=== PATIENT | male | born 1985 | race Caucasian/White ===

== ENCOUNTER → 2016-11-08 | Outpatient (CLI) | payer BC ==
[2014-04-05 16:44] VITALS: BP 159/91
--- NOTE | 2016-11-08 15:59 | VAS ---
HISTORY: Leg pain and swelling Study: Venous Doppler study of the left leg Comparison: None TECHNIQUE: Multiple amaro scale and color flow Doppler images of the deep venous system were obtaine d of the left lower extremity. FINDINGS: The deep venous system of the left lower extremity was evaluated from the level of the common femora l vein through the popliteal vein. Normal color flow and augmentation can be observed. In addition , normal compression is seen throughout the deep venous system. IMPRESSION: 1. Negative for DVT. Reported By:
== END ==
LOC: RAD 14:39
PROVIDERS: ATTEND Internal Medicine
DX: R60.0 Localized edema (principal)
CPT/HCPCS: 93971

== ENCOUNTER → 2017-01-16 | Outpatient (CLI) | payer BC ==
[2014-04-05 16:44] VITALS: BP 159/91
--- NOTE | 2017-01-16 10:40 | RAD ---
HISTORY: Preop gastric sleeve Study: Chest two-view Comparison: None Findings: The trachea is midline. The cardiac silhouette is unremarkable. The lungs are clear without focal infiltrate or effusion. The bony thorax is unremarkable. IMPRESSION: 1. No acute cardiopulmonary disease. Reported By:
--- NOTE | 2017-01-17 08:41 | RAD ---
HISTORY: Preoperative evaluation for gastric banding Study: Barium swallow Comparison: None Technique: Multiple fluoroscopic images of the esophagus were obtained during the administration of oral barium. Findings: Exam is limited secondary to patient body habitus and weight limit of fluoroscopy table. However, no gross esophageal dysmotility is identified. No hernia or reflux was elicited. There is a normal jamie entation of the GE junction. A barium tablet passes normally. The total fluoroscopy time utilized was 4.1 seconds of fluoroscopy time was utilized. 48 fluoroscopi c spot images were obtained. IMPRESSION: Unremarkable barium swallow. Reported By:
== END ==
LOC: RAD 08:51
PROVIDERS: ATTEND Student in an Organized Health Care Education/Training Program
DX: Z01.818 Encounter for other preprocedural examination (principal); Z01.810 Encounter for preprocedural cardiovascular examination; Z01.811 Encounter for preprocedural respiratory examination; E66.01 Morbid (severe) obesity due to excess calories; Z68.45 Body mass index [BMI] 70 or greater, adult; I89.0 Lymphedema, not elsewhere classified
CPT/HCPCS: 70370; 71020; 93005; 93010

== ENCOUNTER 2017-01-26 15:05 | Emergency (ER) | payer BC ==
[2017-01-26 15:11] VITALS: BP 162/92; BMI 68.5
--- NOTE | 2017-01-26 15:36 | DR.GENAD ---
HPI - PCP Primary Care Physician: benjamin - HPI Comment HPI Comment: NOT BETTER. PAIN INCREASING. NO FEVER, NO DRAINAGE. - Complaint/Symptoms Chief Complaint Doctors Comments: ABSCESS PERIRECTAL AREA TIMES FEW DAYS. ON CLINDAMYCIN. Chief Complaint:: pt has a rising between his butt checks. it started night and it has gotten bigger since then - Nurses notes reviewed Nurses Notes Review: Yes - Source History Provided: Patient - Mode of Arrival Mode of Arrival: Ambulatory - Timing Onset of Chief Complaint: 01/24/17 Came on: Suddenly - Duration Duration: Constant Duration: Days PMH - PMH Past Medical History: No Past Surgical History: Yes Surgical History: Tonsillectomy - Family History History of Family Medical Conditions: No - Social History Does patient currently use any type of tobacco product: No Have you used tobacco products in the last 12 months: No Type of Tobacco Use: None Does any household member use tobacco: No Alcohol Use: None Do you use any recreational Drugs:: No Lives With: Family Lives Where: Home - infectious screening In the last 2 months have you had wt loss of >10#?: NO Have you had fever, night sweats or hemotysis?: No Have you traveled outside the country in the last 6 months?: No Isolation: Standard ROS - Review of Systems Constitutional: No Symptoms Reported Eyes: No Symptoms Reported ENTM: No Symptoms Reported Respiratoy: No Symptoms Reported Cardiovascular: No Symptoms Reported Gastrointestinal/Abdominal: No Symptoms Reported Genitourinary: No Symptoms Reported Neurological: No Symptoms Reported Musculoskeletal: Muscle Pain Integumentary: Other (HEMORRHOID, ABCESS, ERYTHEMA RECTAL AREA.) PE - Vital Signs Vitals: Temperature 98 F Pulse Rate 80 Respiratory Rate 18 Blood Pressure 162/92 O2 Sat by Pulse Oximetry 99 - General Limitations: No Limitations General Appearance: Alert - Head Head Exam: Normal Inspection - Eyes Eye exam: Normal Appearance - ENT ENT Exam: Normal External Ear Exam External Ear Exam: Normal External Inspection TM/Canal Exam: Bilateral Normal Nose Exam: Normal Nose Exam Mouth Exam: Normal Inspection Throat Exam: Normal Inspection - Neck Neck Exam: Trachea Midline - Chest Chest Inspection: Symmetric Chest Wall Rise - Respiratory Respiratory Exam: Normal Lung Sounds Bilat Respiratory Exam: Bilateral Clear to Auscultation - Cardiovascular Cardiovascular Exam: Regular Rate, Normal Rhythm, Normal Heart Sounds - Abdominal Exam Abdominal Exam: Normal Bowel Sounds, Soft, Other (INFLAME HEMORRHIOD THAT IS TENDER.). negative: Tenderness - Extremities Extremities Exam: Normal Inspection - Back Back Exam: Normal Inspection - Neurologic Neurological Exam: Alert, Oriented X3 - Psychiatric Psychiatric Exam: Normal Affect, Normal Mood - Skin Skin Exam: Erythema MDM - Additional Information Additional Information Obtained From: Family - Differential Diagnosis Differential Diagnosis: HEMORRHOD, ABSCESS, PROCTITIS Course - Treatment Treatment: SEE ORDERS. - Education/Counseling Education/Counseling: Patient, Family, Education Educated On: Treatment, Diagnosis, Needs for Follow Up - Diagnosis Discharge Problem: Proctitis, Abscess, Acute hemorrhoid - Discharge Plan Disposition: HOME, SELF-CARE Condition: Stable Prescriptions: Acetaminophen with Codeine [Tylenol/Codeine #3 300-30 mg] 1 tab PO Q4-6H PRN # 15 tab PRN Reason: Pain Hydrocortisone Supp 25 mg [Anucort-Hc Supp] 25 mg RECTAL BID PRN #24 supp PRN Reason: Hemmorhoid Itching/Discomfort Sulfamethoxazole-Trimethoprim [BACTRIM DS TAB 800/160 MG *] 1 tab PO BID #20 tab - Follow ups/Referrals Follow ups/Referrals: Bhavesh Bowers [Primary Care Provider] - 01/28/17 - Instructions Instructions: Abscess, Pect-ze-Pwes, Hemorrhoids, Qocr-yd-Iibp, Proctitis Additional Instructions: RETURN TO ED IF WORSE.
== END 2017-01-26 16:42 | disposition home or self-care (01) ==
LOC: ER 15:05
DX: K62.89 Other specified diseases of anus and rectum (principal); K61.1 Rectal abscess; K64.8 Other hemorrhoids
CPT/HCPCS: 99281; 99282; 99283

== ENCOUNTER 2017-04-27 09:45 | Emergency (ER) | payer BC ==
[2017-04-27 09:58] VITALS: BP 152/97; BMI 63.4
--- NOTE | 2017-04-27 10:34 | DR.GENAD ---
HPI - PCP Primary Care Physician: DR. ASHTON - Complaint/Symptoms Chief Complaint Doctors Comments: Histor as stated. Chief Complaint:: PT THINKS HE MAY HAVE A BLOOD CLOT TO HIS LLE... EDEMA AND BRUISING NOTED .. PT HAS LYMADEMA NOTED ,, PT WAS CHECKED 2 MONTHS AGO FOR A CLOT ... Self Treatment fo Chief Complaint: PT IS HAVING TROUBLE WALKING ON IT .. - Source History Provided: Patient - Mode of Arrival Mode of Arrival: Ambulatory - Timing Onset of Chief Complaint: 04/27/17 PMH - PMH Past Medical History: No Past Surgical History: Yes Surgical History: Tonsillectomy Past Surgical History Comment: BARIATRIC SLEVE... - Family History History of Family Medical Conditions: No - Social History Does patient currently use any type of tobacco product: No Have you used tobacco products in the last 12 months: No Type of Tobacco Use: None Does any household member use tobacco: No Alcohol Use: None Do you use any recreational Drugs:: No Lives Where: Home - infectious screening In the last 2 months have you had wt loss of >10#?: NO Have you had fever, night sweats or hemotysis?: No Have you traveled outside the country in the last 6 months?: No Isolation: Standard ROS - Review of Systems Constitutional: negative: Diaphoresis Eyes: No Symptoms Reported ENTM: No Symptoms Reported Respiratoy: No Symptoms Reported Cardiovascular: No Symptoms Reported Gastrointestinal/Abdominal: No Symptoms Reported Genitourinary: No Symptoms Reported Neurological: No Symptoms Reported Musculoskeletal: Left (lower extremity with tenderness) Integumentary: No Symptoms Reported, Other (dusky in color) Hematologic/Lymphatic: No Symptoms Reported Endocrine: No Symptoms Reported Psychiatric: No Symptoms Reported All Other Systems: Reviewed and Negative PE - Vital Signs Vitals: Temperature 98.1 F Pulse Rate 88 Respiratory Rate 22 Blood Pressure 152/97 O2 Sat by Pulse Oximetry 99 - General Limitations: Physical Limitation (pain with ambulation of left lower extremity) General Appearance: Alert - Head Head Exam: Normal Inspection, Atraumatic - Eyes Eye exam: Normal Appearance, PERRL, EOMI - ENT ENT Exam: Normal Exam External Ear Exam: Normal External Inspection, Auricular Hematoma TM/Canal Exam: Bilateral Normal Nose Exam: Normal Nose Exam Mouth Exam: Normal Inspection Throat Exam: Normal Inspection - Neck Neck Exam: Normal Inspection - Chest Chest Inspection: Normal Inspection - Respiratory Respiratory Exam: Normal Lung Sounds Bilat Respiratory Exam: Bilateral Clear to Auscultation - Cardiovascular Cardiovascular Exam: Regular Rate, Normal Rhythm - Abdominal Exam Abdominal Exam: Normal Inspection, Normal Bowel Sounds Abdominal Tenderness: negative: RUQ, RLQ, LUQ, LLQ, Epigastrium, Suprapubic, Diffuse, Mild, Moderate, Severe, Other - Extremities Extremities Exam: Edema (gastrocnemius of left lower extremity edemaouts, dusky in color tender) - Back Back Exam: Normal Inspection - Neurologic Neurological Exam: Alert, Oriented X3, CN II-XII Intact - Psychiatric Psychiatric Exam: Normal Affect - Skin Skin Exam: Warm, Dry, Intact Course - Consultation Called: 11:30 ROR - Labs Reviewed Laboratory Results Reviewed?: Yes (D Dimer 236) Result Diagrams: 04/27/17 10:55 Laboratory: WBC 12.4 X10^3/uL (3.6-10.0) H 04/27/17 10:55 RBC 5.34 X10^6/uL (4.7-6.0) 04/27/17 10:55 Hgb 14.9 g/dL (13.5-18.0) 04/27/17 10:55 Hct 44.5 % (42.0-54.0) 04/27/17 10:55 MCV 83.3 fL (80.0-100.0) 04/27/17 10:55 MCH 27.9 pg (27.0-34.0) 04/27/17 10:55 MCHC 33.5 g/dL (33.0-35.0) 04/27/17 10:55 RDW 16.2 % (11.6-16.5) 04/27/17 10:55 Plt Count 176 X10^3/uL (150.0-450.0) 04/27/17 10:55 MPV 9.2 fL (7.4-11.0) 04/27/17 10:55 Neut % 86.2 % (42.0-75.0) H 04/27/17 10:55 Lymph % 6.9 % (21.0-51.0) L 04/27/17 10:55 [place] % 5.2 % (0.0-13.0) 04/27/17 10:55 Eos % 1.4 % (0.9-2.9) 04/27/17 10:55 Baso % 0.3 % (0.2-1.0) 04/27/17 10:55 Neut # 10.7 x10^3/uL (2.2-4.8) H 04/27/17 10:55 Lymph # 0.9 X10^3/uL (1.3-2.9) L 04/27/17 10:55 [place] # 0.6 x10^3/uL (0.3-0.8) 04/27/17 10:55 Eos # 0.2 x10^3/uL (0.0-0.2) 04/27/17 10:55 Baso # 0.0 X10^3/uL (0.0-0.1) 04/27/17 10:55 Absolute Nucleated RBC 0.0 /100WBC 04/27/17 10:55 D-Dimer 236 ng/mL (0-400) 04/27/17 10:55 C-Reactive Protein 10.20 mg/L (0-3.0) H 04/27/17 10:55 - XRAY XRAY Interpreted by: Radiologist (Venous Ultrasound dopppler LLE: c/o pain: The deep venous ststem of the left lower extremity was evaluated from the level of the common femoral vein through the popliteal vein. Normal color flow and augumentatin can be observe. In addition, normal compression is seen throughout the deep venous ststem. Impressin: Negative for DVT) - Diagnosis Discharge Problem: Leg pain, left, Venous doppler us negative - Discharge Plan Condition: Stable - Follow ups/Referrals Follow ups/Referrals: NFD,None [Primary Care Provider] - 3 days - Instructions
[2017-04-27 11:14] LABS: BASOPHILS % (AUTO) 0.3 % (0.2-1.0); EOSINOPHILS # (AUTO) 0.2 x10^3/uL (0.0-0.2); EOSINOPHILS % (AUTO) 1.4 % (0.9-2.9); HEMATOCRIT 44.5 % (42.0-54.0); HEMOGLOBIN 14.9 g/dL (13.5-18.0); LYMPHOCYTES # (AUTO) 0.9 X10^3/uL (1.3-2.9); LYMPHOCYTES % (AUTO) 6.9 % (21.0-51.0); MEAN CORPUSCULAR HEMOGLOBIN 27.9 pg (27.0-34.0); MEAN CORPUSCULAR HGB CONC 33.5 g/dL (33.0-35.0); MEAN CORPUSCULAR VOLUME 83.3 fL (80.0-100.0); MEAN PLATELET VOLUME 9.2 fL (7.4-11.0); MONOCYTES # (AUTO) 0.6 x10^3/uL (0.3-0.8); MONOCYTES % (AUTO) 5.2 % (0.0-13.0); NEUTROPHILS # (AUTO) 10.7 x10^3/uL (2.2-4.8); NEUTROPHILS % (AUTO) 86.2 % (42.0-75.0); PLATELET COUNT 176 X10^3/uL (150.0-450.0); RED BLOOD COUNT 5.34 X10^6/uL (4.7-6.0); RED CELL DISTRIBUTION WIDTH 16.2 % (11.6-16.5); WHITE BLOOD COUNT 12.4 X10^3/uL (3.6-10.0)
[2017-04-27 11:21] LABS: C-REACTIVE PROTEIN 10.2 mg/L (0-3.0)
--- NOTE | 2017-04-27 12:30 | VAS ---
VENOUS ULTRASOUND DOPPLER EXAMINATION OF THE LEFT LOWER EXTREMITY HISTORY: Leg pain Comparison: None TECHNIQUE: Multiple amaro scale and color flow Doppler images of the deep venous system were obtained of the left lower extremity. FINDINGS: The deep venous system of the left lower extremity was evaluated from the level of the common femoral vein through the popliteal vein. Normal color flow and augmentation can be observed. In addition, normal compression is seen throughout the deep venous system. IMPRESSION: 1. Negative for DVT. Reported By:
== END 2017-04-27 13:00 | disposition home or self-care (01) ==
LOC: ER 10:01
DX: M79.605 Pain in left leg (principal)
CPT/HCPCS: 36415; 85025; 85378; 86140; 93971; 99283

== ENCOUNTER → 2017-10-14 | Outpatient (CLI) | payer BC ==
--- NOTE | 2017-10-14 12:46 | CT ---
HISTORY: Headache Study: CT head without contrast Comparison: None Technique: Axial noncontrast images with coronal and sagittal reformats. Dose reduction procedures we re used with mA/kv adjusted for body size. Findings: The ventricles are normal in size shape and position. There are no areas of abnormal attenuation to s uggest recent or remote CVA, hemorrhage, mass lesion, or extra-axial fluid collection. The visualized sinuses are clear. The calvarium is intact. IMPRESSION: No significant intracranial abnormality identified Reported By:
== END ==
LOC: RAD 12:08
PROVIDERS: ATTEND Internal Medicine
DX: R51 Headache (principal)
CPT/HCPCS: 70450

== ENCOUNTER 2017-10-15 09:36 | Observation (INO) | payer BC ==
[2017-10-15] MEDS ORDERED: MILK OF MAGNESIA PO PRN (10:50)
[2017-10-15] MEDS ORDERED: COLACE CAP 100 MG PO SCH (11:00)
[2017-10-15] MEDS: PHENERGAN INJ 25 MG IV PRN ×2 (11:05→16:03)
[2017-10-15] MEDS: DEMEROL INJ IVP PRN ×2 (11:05→16:03)
[2017-10-15 11:06] LABS: BILIRUBIN,URINE NEGATIVE (NEGATIVE); BLOOD/HEMOGLOBIN,URINE 1+ (NEGATIVE); GLUCOSE, URINE NEGATIVE (NEGATIVE); KETONES,URINE 1+ (NEGATIVE); LEUKOCYTE ESTERASE ,URINE 1+ (NEGATIVE); NITRITES,URINE NEGATIVE (NEGATIVE); PROTEIN,URINE 2+ (NEGATIVE); UROBILINOGEN,URINE 2+ (NORMAL)
[2017-10-15 11:15] LABS: ALANINE AMINOTRANSFERASE 18 Units/L (12-78); ALBUMIN 3.8 g/dL (3.4-5.0); ALKALINE PHOSPHATASE 60 Units/L (46-116); AMYLASE 40 Units/L (25-115); ASPARTATE AMINO TRANSFERASE 12 Units/L (15-37); BLOOD UREA NITROGEN 11 mg/dL (7-18); CALCIUM 8.2 mg/dL (8.5-10.1); CARBON DIOXIDE 29.8 mmol/L (21-32); CHLORIDE 104 mmol/L (98-107); CREATININE 1.01 mg/dL (0.70-1.30); LIPASE 100 Units/L (73-393); SODIUM 142 mmol/L (136-145); TOTAL PROTEIN 8.1 g/dL (6.4-8.2); eGFR BLACK RACES > 60 (>60); eGFR NON BLACK RACES > 60 (>60)
[2017-10-15] MEDS: PEPCID 20 MG IV PREMIX* 20 MG/50 ML BAG IV SCH ×2 (11:18→21:16)
[2017-10-15] MEDS: NS 1000 ML 1,000 ML IV SCH ×3 (11:18→22:21)
[2017-10-15] MEDS: PROTONIX INJ 40 MG VIAL IVP SCH ×2 (11:18→21:16)
[2017-10-15 11:23] LABS: APPEARANCE,URINE SLIGHTLY HAZY (CLEAR); BACTERIA,URINE TRACE /HPF (NEGATIVE); COLOR,URINE DARK YELLOW (YELLOW); MUCUS,URINE FEW /HPF (NEGATIVE); SQUAMOUS EPITHELIAL CELL,UR FEW /HPF (NEGATIVE)
[2017-10-15 11:56] LABS: BASOPHILS % (AUTO) 0.5 % (0.2-1.0); EOSINOPHILS % (AUTO) 0.3 % (0.9-2.9); HEMATOCRIT 42.9 % (42.0-54.0); HEMOGLOBIN 14.6 g/dL (13.5-18.0); LYMPHOCYTES # (AUTO) 1.1 X10^3/uL (1.3-2.9); LYMPHOCYTES % (AUTO) 13.7 % (21.0-51.0); MEAN CORPUSCULAR HEMOGLOBIN 29.6 pg (27.0-34.0); MEAN CORPUSCULAR VOLUME 87.1 fL (80.0-100.0); MEAN PLATELET VOLUME 8.9 fL (7.4-11.0); MONOCYTES # (AUTO) 0.4 x10^3/uL (0.3-0.8); NEUTROPHILS # (AUTO) 6.6 x10^3/uL (2.2-4.8); NEUTROPHILS % (AUTO) 80.5 % (42.0-75.0); PLATELET COUNT 235 X10^3/uL (150.0-450.0); RED BLOOD COUNT 4.92 X10^6/uL (4.7-6.0); RED CELL DISTRIBUTION WIDTH 13.7 % (11.6-16.5); WHITE BLOOD COUNT 8.2 X10^3/uL (3.6-10.0)
[2017-10-15] MEDS ORDERED: LEVSIN/MAALOX/LIDOC VISC PO SCH (13:00)
[2017-10-15] MEDS: NORCO 10/325 TAB PO PRN ×2 (14:23→21:15)
[2017-10-15] MEDS ORDERED: NS 100 ML IV + SPIKE MINIBAG* 100 ML IV ONE (16:40)
[2017-10-15] MEDS: TORADOL 30 MG VIAL IVP SCH ×2 (17:01→22:21)
[2017-10-15] MEDS: ZOSYN VIAL 3.375 GM IV SCH ×2 (17:02→22:21)
--- NOTE | 2017-10-15 17:36 | CT ---
HISTORY: Headache, neck pain Study: CT cervical spine without contrast Comparison: None Technique: Axial noncontrast images with coronal and sagittal reformats. Dose reduction procedures we re used with mA/kv adjusted for body size. Findings: The prevertebral soft tissues are normal. The alignment is normal. The vertebral bodies are of averag e height. The disc spaces are preserved. The pedicles, spinous processes, and posterior elements are intact. The neural foramina are patent. The joints are normal. IMPRESSION: No significant abnormality identified Reported By:
[2017-10-15] MEDS: COLACE CAP 100 MG PO SCH (21:15)
[2017-10-16] MEDS: NS 1000 ML 1,000 ML IV SCH ×5 (03:03→22:35)
[2017-10-16] MEDS ORDERED: NS 100 ML IV + SPIKE MINIBAG* 100 ML IV ONE ×4 (04:32→20:18)
[2017-10-16] MEDS: TORADOL 30 MG VIAL IVP SCH ×4 (04:36→22:35)
[2017-10-16] MEDS: ZOSYN VIAL 3.375 GM IV SCH ×4 (04:37→22:35)
[2017-10-16 06:14] LABS: BASOPHILS # (AUTO) 0.1 X10^3/uL (0.0-0.1); BASOPHILS % (AUTO) 0.9 % (0.2-1.0); EOSINOPHILS # (AUTO) 0.1 x10^3/uL (0.0-0.2); EOSINOPHILS % (AUTO) 1.7 % (0.9-2.9); HEMATOCRIT 39.8 % (42.0-54.0); HEMOGLOBIN 13.7 g/dL (13.5-18.0); LYMPHOCYTES % (AUTO) 30.3 % (21.0-51.0); MEAN CORPUSCULAR HEMOGLOBIN 29.9 pg (27.0-34.0); MEAN CORPUSCULAR HGB CONC 34.5 g/dL (33.0-35.0); MEAN CORPUSCULAR VOLUME 86.5 fL (80.0-100.0); MEAN PLATELET VOLUME 9.1 fL (7.4-11.0); MONOCYTES # (AUTO) 0.6 x10^3/uL (0.3-0.8); MONOCYTES % (AUTO) 8.8 % (0.0-13.0); NEUTROPHILS # (AUTO) 3.9 x10^3/uL (2.2-4.8); NEUTROPHILS % (AUTO) 58.3 % (42.0-75.0); PLATELET COUNT 202 X10^3/uL (150.0-450.0); RED CELL DISTRIBUTION WIDTH 13.9 % (11.6-16.5); WHITE BLOOD COUNT 6.7 X10^3/uL (3.6-10.0)
[2017-10-16 07:02] LABS: ALBUMIN 3.1 g/dL (3.4-5.0); ASPARTATE AMINO TRANSFERASE 11 Units/L (15-37); BLOOD UREA NITROGEN 13 mg/dL (7-18); CALCIUM 8.1 mg/dL (8.5-10.1); CHLORIDE 106 mmol/L (98-107); COR CA(FOR HYPOALB) 8.8 mg/dL (8.5-10.1); CREATININE 0.87 mg/dL (0.70-1.30); SODIUM 143 mmol/L (136-145); eGFR BLACK RACES > 60 (>60); eGFR NON BLACK RACES > 60 (>60)
[2017-10-16 07:27] LABS: ALANINE AMINOTRANSFERASE 16 Units/L (12-78); ALKALINE PHOSPHATASE 48 Units/L (46-116)
[2017-10-16 07:45] VITALS: BMI 52.7
[2017-10-16] MEDS: PROTONIX INJ 40 MG VIAL IVP SCH ×2 (09:17→20:47)
[2017-10-16] MEDS: PEPCID 20 MG IV PREMIX* 20 MG/50 ML BAG IV SCH ×2 (09:17→20:48)
[2017-10-16] MEDS ORDERED: ZANAFLEX PO ONE (10:15)
[2017-10-16] MEDS ORDERED: PATIENT'S HOME MEDICATION (Ondansetron [Zofran Odt 8 Mg] 1 TAB) PO PRN (10:18)
[2017-10-16] MEDS ORDERED: ZOFRAN TAB 4 MG PO PRN (10:20)
--- NOTE | 2017-10-16 18:14 | DR.UPDATE ---
H&P Update History and Physical Update: WAS SEEN IN THE OFFICE ON 10/14/17. PATIENT REFUSED ADMISSION YESTERDAY , BUT RETURNED TODAY WITH THE SAME SYMPTOMS. WE PLAN TO ADMIT PATIENT FOR FURTHER EVALUATION AND WORK-UP. AN H&P WAS COMPLETED PRIOR TO ADMISSION. PATIENT HAS BEEN SEEN AND EXAMINED WITH NO CHANGES NOTED TO H&P. Changes noted: NO Yes with the following:
[2017-10-16] MEDS: NORCO 10/325 TAB PO PRN (19:22)
[2017-10-16] MEDS: COLACE CAP 100 MG PO SCH (20:49)
[2017-10-16] MEDS ORDERED: ZANAFLEX PO SCH (21:00)
[2017-10-17] MEDS ORDERED: NS 100 ML IV + SPIKE MINIBAG* 100 ML IV ONE (04:26)
[2017-10-17] MEDS: TORADOL 30 MG VIAL IVP SCH ×2 (04:42→10:35)
[2017-10-17] MEDS: ZOSYN VIAL 3.375 GM IV SCH ×2 (04:42→10:35)
[2017-10-17] MEDS: NS 1000 ML 1,000 ML IV SCH ×2 (04:42→10:35)
[2017-10-17 05:46] LABS: ALANINE AMINOTRANSFERASE 16 Units/L (12-78); ALBUMIN 3.3 g/dL (3.4-5.0); ALKALINE PHOSPHATASE 54 Units/L (46-116); ASPARTATE AMINO TRANSFERASE 8 Units/L (15-37); BLOOD UREA NITROGEN 12 mg/dL (7-18); CALCIUM 7.8 mg/dL (8.5-10.1); CARBON DIOXIDE 28.8 mmol/L (21-32); CHLORIDE 105 mmol/L (98-107); COR CA(FOR HYPOALB) 8.4 mg/dL (8.5-10.1); CREATININE 0.95 mg/dL (0.70-1.30); SODIUM 142 mmol/L (136-145); TOTAL PROTEIN 7.3 g/dL (6.4-8.2); eGFR BLACK RACES > 60 (>60); eGFR NON BLACK RACES > 60 (>60)
[2017-10-17 05:54] LABS: BASOPHILS # (AUTO) 0.1 X10^3/uL (0.0-0.1); BASOPHILS % (AUTO) 1.1 % (0.2-1.0); EOSINOPHILS # (AUTO) 0.3 x10^3/uL (0.0-0.2); EOSINOPHILS % (AUTO) 3.9 % (0.9-2.9); HEMATOCRIT 41.2 % (42.0-54.0); HEMOGLOBIN 14.3 g/dL (13.5-18.0); LYMPHOCYTES % (AUTO) 26.3 % (21.0-51.0); MEAN CORPUSCULAR HEMOGLOBIN 29.9 pg (27.0-34.0); MEAN CORPUSCULAR HGB CONC 34.7 g/dL (33.0-35.0); MEAN CORPUSCULAR VOLUME 86.3 fL (80.0-100.0); MEAN PLATELET VOLUME 8.8 fL (7.4-11.0); MONOCYTES # (AUTO) 0.6 x10^3/uL (0.3-0.8); NEUTROPHILS # (AUTO) 4.5 x10^3/uL (2.2-4.8); NEUTROPHILS % (AUTO) 60.7 % (42.0-75.0); PLATELET COUNT 215 X10^3/uL (150.0-450.0); RED BLOOD COUNT 4.78 X10^6/uL (4.7-6.0); RED CELL DISTRIBUTION WIDTH 13.6 % (11.6-16.5); WHITE BLOOD COUNT 7.5 X10^3/uL (3.6-10.0)
[2017-10-17] MEDS ORDERED: K-LYTE EFFERVESCENT PO PRN (06:59)
[2017-10-17] MEDS ORDERED: POTASSIUM CHL 60 MEQ/NS 0.45% 500 ML IV PRN (06:59)
[2017-10-17] MEDS ORDERED: K-RIDER 10 MEQ/NS 100 ML 10 MEQ/100 ML BAG IV PRN (06:59)
[2017-10-17] MEDS ORDERED: POTASSIUM CHL 40 MEQ/NS 0.45% 500 ML IV PRN (06:59)
[2017-10-17] MEDS ORDERED: POTASSIUM CHLORIDE LIQ 20 MEQ UDC PO PRN (06:59)
[2017-10-17] MEDS: NORCO 10/325 TAB PO PRN (07:50)
[2017-10-17] MEDS: PROTONIX INJ 40 MG VIAL IVP SCH (08:43)
[2017-10-17] MEDS: PEPCID 20 MG IV PREMIX* 20 MG/50 ML BAG IV SCH (08:43)
--- NOTE | 2017-10-17 10:20 | PCM.PROG ---
Progress Note - Progress Note for Day of Date: 10/16/17 - Subjective Subjective: IS BEING TREATED FOR SEVERE HEADACHE, NECK PAIN, AND NAUSEA /VOMITING. TODAY, HE IS ALERT AND ORIENTED, LYING IN BED ON MORNING ROUNDS. HE CONTINUES WITH MILD HEADACHE AND NECK PAIN. NORMAL RANGE OF MOTION IS NOTED TO NECK WITH NO STIFFNESS OR RIGIDITIY NOTED. HIS VITALS THIS MORNING ARE 98.3-56- 20-94%-128/74. HE REMAINS HEMODYNAMICALLY STABLE TODAY WITH THE EXCEPTION OF HIS POTASSIUM BEING SLIGHTLY DECREASED AT 3.4. TODAY, WE WILL START TIZANIDINE 4MG AT HS. WE WILL ALSO REPLACE HIS POTASSIUM WITH THE POTASSIUM PROTOCOL. OTHERWISE, WE WILL CONTINUE WITH CURRENT PLAN OF CARE AND CONTINUE TO MONITOR PATIENT. - Past Medical Family Social History Past Med/Fam/Surg Hx: No changes since H&P Allergies: Allergies No Known Drug Allergies Allergy (Verified 04/27/17 09:52) - Review of Systems ROS: No change since H&P - Vital Signs and I&O's Vital Signs: Temperature 98.2 F Pulse Rate [Right Brachial] 57 Pulse Rate [Left Radial] 55 Respiratory Rate 20 Blood Pressure [Right Arm] 134/80 Blood Pressure [Left Arm] 118/58 Blood Pressure 152/97 O2 Sat by Pulse Oximetry 96 Intake and Output: Intake & Output 10/14/17 10/15/17 10/16/17 10/17/17 11:59 11:59 11:59 11:59 Intake Total 1999 2260 Balance 1999 2260 - Physical Exam Oriented: Normal Eyes: Normal Ear: Normal Nose: Normal Throat: Normal Respiratory: Normal Cardiovascular: Normal : Normal Auscultation: Bowel Sounds: Normal Palpation: Normal Tenderness: Normal Skin: Normal Psychiatric: Normal Mood Description: Calm Affect: Normal Speech Pattern: Clear, Appropriate - Laboratory and Diagnostics Result Diagrams: 10/17/17 04:50 10/17/17 04:50 Labs: Laboratory WBC 7.5 X10^3/uL (3.6-10.0) 10/17/17 04:50 RBC 4.78 X10^6/uL (4.7-6.0) 10/17/17 04:50 Hgb 14.3 g/dL (13.5-18.0) 10/17/17 04:50 Hct 41.2 % (42.0-54.0) L 10/17/17 04:50 MCV 86.3 fL (80.0-100.0) 10/17/17 04:50 MCH 29.9 pg (27.0-34.0) 10/17/17 04:50 MCHC 34.7 g/dL (33.0-35.0) 10/17/17 04:50 RDW 13.6 % (11.6-16.5) 10/17/17 04:50 Plt Count 215 X10^3/uL (150.0-450.0) 10/17/17 04:50 MPV 8.8 fL (7.4-11.0) 10/17/17 04:50 Neut % (Auto) 60.7 % (42.0-75.0) 10/17/17 04:50 Lymph % (Auto) 26.3 % (21.0-51.0) 10/17/17 04:50 [place] % (Auto) 8.0 % (0.0-13.0) 10/17/17 04:50 Eos % (Auto) 3.9 % (0.9-2.9) H 10/17/17 04:50 Baso % (Auto) 1.1 % (0.2-1.0) H 10/17/17 04:50 Neut # (Auto) 4.5 x10^3/uL (2.2-4.8) 10/17/17 04:50 Lymph # (Auto) 2.0 X10^3/uL (1.3-2.9) 10/17/17 04:50 [place] # (Auto) 0.6 x10^3/uL (0.3-0.8) 10/17/17 04:50 Eos # (Auto) 0.3 x10^3/uL (0.0-0.2) H 10/17/17 04:50 Baso # (Auto) 0.1 X10^3/uL (0.0-0.1) 10/17/17 04:50 Absolute Nucleated RBC 0.1 /100WBC 10/17/17 04:50 Sodium 142 mmol/L (136-145) 10/17/17 04:50 Corrected Sodium TNP 10/17/17 04:50 Potassium 3.3 mmol/L (3.5-5.1) L 10/17/17 04:50 Chloride 105 mmol/L (98-107) 10/17/17 04:50 Carbon Dioxide 28.8 mmol/L (21-32) 10/17/17 04:50 BUN 12 mg/dL (7-18) 10/17/17 04:50 Creatinine 0.95 mg/dL (0.70-1.30) 10/17/17 04:50 Est GFR (MDRD) Af Amer > 60 (>60) 10/17/17 04:50 Est GFR (MDRD) Non-Af > 60 (>60) 10/17/17 04:50 Glucose 87 mg/dL (65-99) 10/17/17 04:50 Calcium 7.8 mg/dL (8.5-10.1) L 10/17/17 04:50 Corrected Calcium 8.4 mg/dL (8.5-10.1) L 10/17/17 04:50 Magnesium 1.8 mg/dL (1.7-2.9) 10/17/17 04:50 Total Bilirubin 0.80 mg/dL (0.2-1.0) 10/17/17 04:50 AST 8 Units/L (15-37) L 10/17/17 04:50 ALT 16 Units/L (12-78) 10/17/17 04:50 Alkaline Phosphatase 54 Units/L (46-116) 10/17/17 04:50 Total Protein 7.3 g/dL (6.4-8.2) 10/17/17 04:50 Albumin 3.3 g/dL (3.4-5.0) L 10/17/17 04:50 Globulin 4.0 g/dL (2.5-4.5) 10/17/17 04:50 Albumin/Globulin Ratio 0.8 Ratio (1.1-2.1) L 10/17/17 04:50 Amylase 40 Units/L (25-115) 10/15/17 10:45 Lipase 100 Units/L (73-393) 10/15/17 10:45 Specimen Type Clean catch urine 10/15/17 10:39 Urine Color Dark yellow (YELLOW) 10/15/17 10:39 Urine Appearance Slightly hazy (CLEAR) 10/15/17 10:39 Urine pH 6.0 (5.0 - 8.0) 10/15/17 10:39 Ur Specific Ball 1.015 (1.000-1.030) 10/15/17 10:39 Urine Protein 2+ (NEGATIVE) 10/15/17 10:39 Urine Glucose (UA) Negative (NEGATIVE) 10/15/17 10:39 Urine Ketones 1+ (NEGATIVE) 10/15/17 10:39 Urine Occult Blood 1+ (NEGATIVE) 10/15/17 10:39 Urine Nitrite Negative (NEGATIVE) 10/15/17 10:39 Urine Bilirubin Negative (NEGATIVE) 10/15/17 10:39 Urine Urobilinogen 2+ (NORMAL) 10/15/17 10:39 Ur Leukocyte Esterase 1+ (NEGATIVE) 10/15/17 10:39 Urine RBC 2-5 /HPF (NONE SEEN) 10/15/17 10:39 Urine WBC 2-5 /HPF (NONE SEEN) 10/15/17 10:39 Ur Squamous Epith Cells Few /HPF (NEGATIVE) 10/15/17 10:39 Urine Bacteria Trace /HPF (NEGATIVE) 10/15/17 10:39 Urine Mucus Few /HPF (NEGATIVE) 10/15/17 10:39 Ur Culture Indicated? No/not indicated 10/15/17 10:39 - Plan (1) Headache Status: Acute Qualifiers: Headache type: unspecified Headache chronicity pattern: acute headache Intractability: intractable Qualified Code(s): R51 - Headache Plan: DEMEROL 25MG IV Q4H PRN PAIN, TORADOL 30MG IV Q6H PRN, NORCO 10/325MG PO Q4H PRN, ZANAFLEX 4MG PO HS, CONTINUE TO MONITOR (2) Neck pain Status: Acute Plan: DEMEROL 25MG IV Q4H PRN PAIN, TORADOL 30MG IV Q6H PRN, NORCO 10/325MG PO Q4H PRN, ZANAFLEX 4MG PO HS, CONTINUE TO MONITOR (3) Nausea & vomiting Status: Acute Qualifiers: Vomiting type: unspecified Vomiting Intractability: intractable Qualified Code(s): R11.2 - Nausea with vomiting, unspecified Plan: ZOFRAN 4MG PO Q8H PRN, PHENERGAN 12.5MG IV Q4H PRN, CONTINUE TO MONITOR
[2017-10-17 12:30] VITALS: BP 127/74
== END 2017-10-17 12:45 | disposition home or self-care (01) ==
LOC: MED/SURG 09:36
PROVIDERS: ADMIT Internal Medicine; ATTEND Internal Medicine
DX: R51 Headache (principal); R11.2 Nausea with vomiting, unspecified; M54.2 Cervicalgia; R10.84 Generalized abdominal pain; R42 Dizziness and giddiness; H53.8 Other visual disturbances
CPT/HCPCS: 36415; 72125; 80053; 81001; 82150; 83690; 83735; 85025; A4222; C9113; S0028; G0378; J1885; J2175; J2543; J2550